=== PATIENT | female | born 2000 | race Hispanic/Latino ===

== ENCOUNTER 2019-09-10 13:42 | Emergency (ER) | payer SELFPAY ==
[~2019-09-10] VITALS: Ht 149.9 cm; Wt 52.2 kg
--- NOTE | 2019-09-10 15:44 | Emergency Department Note ---
History of Present Illnes History of Present Illness Chief Complaint: General Medicine Complaints History of Present Illness This is a 19 year old female c/o vaga sx slight williamson when she breaths through her nose denies sob n/v/d cp fever cough - family member recently tested pos PATIENT IN FROM HOME WITH COMPLAINTS OF INTERMITTANT HEAD PAIN AND NOSEBLEEDS X 1 WEEK; ALSO WITH COMPLAINTS OF LOSS OF TASTE AND SMELL. PATIENT O2 SATS 100% ON ROOM AIR, APPEARS IN NO DISTRESS, DENIES SHORTNESS OF BREATH OR COUGH Historian: Patient Arrival Mode: Car Onset (how long ago): week(s) (1) Radiation: Reports proximal; Denies non-radiation, Denies back, Denies neck, Denies extremity, Denies abdomen, Denies periumbilical, Denies flank, Denies distal, Denies other Severity: mild Onset quality: gradual Duration (how long): week(s) (1) Timing of current episode: constant Progression: unchanged Context: Denies recent illness, Denies recent surgery, Denies recent immobiliza tion, Denies recent travel, Denies trauma/injury, Denies new medications, Denies hx of DVT/PE, Denies non-compliance w/ medications, Denies other Relieving factors: none Exacerbating factors: none Associated symptoms: Denies denies other symptoms, Denies confusion, Denies chest pain, Denies cough, Denies diaphoresis, Denies fever/chills, Denies headaches, Denies loss of appetite, Denies malaise, Denies nausea/vomiting, Denies rash, Denies seizure, Denies shortness of breath, Denies syncope, Denies weakness, Denies other Treatments prior to arrival: none Past Medical/Family History Physician Review I have reviewed the patient's past medical and family history. Any updates have been documented here. Past Medical History Recent Fever: No Clinical Suspicion of Infectio: No New/Unexplained Change in Ment: No Past Medical History: None Past Surgical History: None Social History Smoking Cessation: Never Smoker Counseling Performed: No Alcohol Use: None Any Illegal Drug Use: No Physically hurt or threatened: No Other Any Pre-Existing Lines (PICC,: No Review of Systems Review of Systems Constitutional: Reports no symptoms, Reports malaise, Reports other (intermittent slight williamson when she breaths through her nose) EENTM: Reports no symptoms; Denies nose pain, Denies throat pain, Denies throat swelling Cardiovascular: Reports no symptoms Respiratory: Reports no symptoms; Denies cough, Denies dyspnea Gastrointestinal: Reports no symptoms; Denies abdominal pain, Denies diarrhea, Denies nausea, Denies vomiting Genitourinary: Reports no symptoms; Denies dysuria, Denies frequency Musculoskeletal: Reports no symptoms; Denies muscle pain Integumentary: Reports no symptoms Neurological: Reports no symptoms Psychological: Reports no symptoms Endocrine: Reports no symptoms Hematological/Lymphatic: Reports no symptoms Review of other systems: All other systems negative (no sinus congestion kelsey throat n/v/d sob cough fever ) Physical Exam Related Data Allergies: Coded Allergies: No Known Allergies (Unverified , 09/10/19) Triage Vital Signs Vital Signs Date Time Temp Pulse Resp B/P (MAP) Pulse Ox O2 Delivery O2 Flow Rate FiO2 09/10/19 14:17 99.7 65 18 123/83 100 Room Air Vital signs reviewed: Yes Physical Exam CONSTITUTIONAL Constitutional: Present well-developed, Present well-nourished HENT HENT: Present normocephalic, Present atraumatic, Present oropharynx clear /moist, Present nose normal, Present pharynx abnormal, Present erythema (mild), Present other (no tonsilar swelling exudates uvula midline ) HENT L/R: Present left ext ear normal, Present right ext ear normal EYES Eyes: Reports PERRL, Reports conjunctivae normal NECK Neck: Present ROM normal PULMONARY Pulmonary: Present effort normal, Present breath sounds normal CARDIOVASCULAR Cardiovascular: Present regular rhythm, Present heart sounds normal, Present capillary refill normal, Present normal rate GASTROINTESTINAL Abdominal: Present soft, Present nontender, Present bowel sounds normal GENITOURINARY Genitourinary: Present exam deferred SKIN Skin: Present warm, Present dry MUSCULOSKELETAL Musculoskeletal: Present ROM normal NEUROLOGICAL Neurological: Present alert, Present oriented x 3, Present no gross motor or sensory deficits PSYCHOLOGICAL Psychological: Present mood/affect normal, Present judgement normal Assessment & Plan Medical Decision Making MDM This is a 19 year old female c/o vaga sx slight williamson when she breaths through her nose denies sob n/v/d cp fever cough - pt wants covid test Reassessment Reassessment discussed plan of care and f/u instructions given f/u instructions where to get tested pt afebrile lungs cta o2 sat 99% rm air pt denies williamson at this time non toxic nad 1. otc tylenol and motrin as needed 2. return to ed as needed 3. follow up with your doctor in 1-2 days without fail Assessment & Plan Final Impression: (1) Headache Depart Disposition: HOME, SELF-CARE Last Vital Signs Date Time Temp Pulse Resp B/P (MAP) Pulse Ox O2 Delivery O2 Flow Rate FiO2 09/10/19 14:17 99.7 65 18 123/83 100 Room Air MILLY SHAH Sep 10, 2019 15:44
== END 2019-09-10 14:36 | disposition home or self-care (01) ==
LOC: ER 13:42
DX: R51 Headache (principal)
CPT/HCPCS: 99282

== ENCOUNTER 2021-02-15 15:04 | Emergency (ER) | payer MEDICARE ==
[~2021-02-15] VITALS: Ht 149.9 cm; Wt 52.2 kg
[2021-02-15 15:38] LABS: BASOPHILS # (AUTO) 0.1 (0.0-0.1); BASOPHILS % 0.5 % (0.0-1.0); EOSINOPHILS # (AUTO) 0.1 (0.0-0.4); EOSINOPHILS % 0.7 % (0.0-6.0); HEMATOCRIT 39.3 % (34.2-44.1); HEMOGLOBIN 12.9 g/dL (12.0-16.0); LYMPHOCYTES # (AUTO) 3.4 (1.0-3.2); LYMPHOCYTES % 22.4 % (18.0-39.1); MEAN CORPUSCULAR HEMOGLOBIN 30.4 pg (28-32); MEAN CORPUSCULAR HGB CONC 32.8 g/dL (31-35); MEAN CORPUSCULAR VOLUME 92.5 fL (81-99); MONOCYTES % 6.8 % (4.4-11.3); NEUTROPHILS # (AUTO) 10.3 (2.1-6.9); NEUTROPHILS % 69.2 % (38.7-80.0); PLATELET COUNT 357 x10e3/uL (140-360); RED BLOOD COUNT 4.25 x10e6/uL (3.6-5.1); RED CELL DISTRIBUTION WIDTH 12.7 % (11.7-14.4)
[2021-02-15 15:58] LABS: ALBUMIN 4.3 g/dL (3.5-5.0); ALBUMIN/GLOBULIN RATIO 1.3 (0.8-2.0); ALKALINE PHOSPHATASE 69 IU/L (40-150); ANION GAP 13.3 mmol/L (8-16); BLOOD UREA NITROGEN 6 mg/dL (7-26); BUN/CREATININE RATIO 9 (6-25); CALCIUM 9.3 mg/dL (8.4-10.2); CARBON DIOXIDE 23 mmol/L (22-29); CHLORIDE 104 mmol/L (98-107); CREATININE, SERUM 0.66 mg/dL (0.57-1.11); EST GLOMERULAR FILTRATION RATE 112 ML/MIN (60-); GLUCOSE 80 mg/dL (74-118); POTASSIUM 3.3 mmol/L (3.5-5.1); SODIUM 137 mmol/L (136-145)
[2021-02-15 15:59] LABS: ALANINE AMINOTRANSFERASE < 6 IU/L (0-55)
[2021-02-15 16:28] LABS: COLOR,URINE YELLOW (YELLOW)
[2021-02-15 16:29] LABS: CLARITY,URINE SL CLOUDY (CLEAR); KETONES,URINE NEGATIVE (NEGATIVE); LEUKOCYTE ESTERASE ,URINE NEGATIVE (NEGATIVE); NITRITE,URINE NEGATIVE (NEGATIVE); PROTEIN,URINE DIPSTICK NEGATIVE (NEGATIVE); URINE UROBILINOGEN 0.2 mg/dL (0.2 - 1)
[2021-02-15 16:42] LABS: BACTERIA,URINE FEW /HPF; EPITHELIAL CELLS,URINE MODERATE /LPF; MUCUS,URINE MANY (RARE)
[2021-02-15 16:44] LABS: RBC,URINE >50 /HPF (0-5)
[2021-02-15] MEDS ORDERED: NITROFURANTOIN100 MG PO (17:15)
== END 2021-02-15 17:37 | disposition home or self-care (01) ==
LOC: ER 15:18
DX: O20.0 Threatened abortion (principal); O23.41 Unspecified infection of urinary tract in pregnancy, first trimester; N39.0 Urinary tract infection, site not specified; G40.909 Epilepsy, unspecified, not intractable, without status epilepticus
CPT/HCPCS: 36415; 76801; 76817; 80053; 81001; 84702; 85025; 99284